=== PATIENT | female | born 1935 | race Caucasian/White ===

== ENCOUNTER 2016-10-13 11:47 | Outpatient (CLI) ==
[2016-10-13 13:46] LABS: BASOPHILS % (AUTO) 0.5 % (0.0-3.0); EOSINOPHILS % (AUTO) 0.5 % (0.0-7.0); HEMATOCRIT 36.8 % (37.0-47.0); IMMATURE GRANULOCYTE % (AUTO) 3.8 % (0.0-5.0); LYMPHOCYTES # (AUTO) 1.7 K/uL (0.60-3.4); LYMPHOCYTES % (AUTO) 27.3 (10.0-50.0); MEAN CORPUSCULAR HGB CONC 32.6 (31.8-35.4); MEAN CORPUSCULAR VOLUME 88.9 fl (81.0-99.0); MONOCYTES # (AUTO) 1.4 K/uL (0.4-2.0); MONOCYTES % (AUTO) 22.4 (0-10); NEUTROPHILS # (AUTO) 2.9 K/ul (2.0-6.9); NEUTROPHILS % (AUTO) 45.5; PLATELET COUNT 120 10^3/uL (140-440); RED BLOOD COUNT 4.14 10^6/ul (4.20-5.40); WHITE BLOOD COUNT 6.26 K/ul (4.6-10.2)
[2016-10-13 13:57] LABS: BILIRUBIN,URINE Negative (NEGATIVE); KETONES,URINE Negative (NEGATIVE); NITRITE,URINE Negative (NEGATIVE); PH,URINE 8.5 (5-9); PROTEIN,URINE Negative (NEGATIVE); URINE, BLOOD Trace-intact (NEGATIVE)
[2016-10-13 13:59] LABS: ADD URINE MICROSCOPIC NO; LEUKOCYTE ESTERASE ,URINE 1+ (NEGATIVE)
[2016-10-13 14:17] LABS: ALBUMIN 3.8 g/dL (3.4-5.0); ALBUMIN/GLOBULIN RATIO 1.06; ANION GAP 12.9; BILIRUBIN,TOTAL 0.72 mg/dL (0.00-1.20); BUN/CREATININE RATIO 28.35; CALCIUM 9.5 mg/dL (8.2-10.2); CHOL/HDL RATIO 3.2 (4.5-5.5); CREATININE 0.67 mg/dL (0.60-1.30); POTASSIUM 3.9 mmol/L (3.5-5.10); TOTAL PROTEIN 7.4 g/dL (5.8-8.1)
== END 2016-10-13 11:48 | disposition home or self-care (01) ==
LOC: LAB 11:47
PROVIDERS: ATTEND General Practice
DX: E11.9 Type 2 diabetes mellitus without complications (principal); E03.9 Hypothyroidism, unspecified; I48.91 Unspecified atrial fibrillation; I10 Essential (primary) hypertension; Z79.899 Other long term (current) drug therapy
CPT/HCPCS: 36415; 80053; 80061; 81001; 83036; 85025; 87086

== ENCOUNTER 2017-02-24 13:54 | Outpatient (CLI) ==
[2017-02-24 16:32] LABS: BASOPHILS % (AUTO) 0.1 % (0.0-3.0); EOSINOPHILS % (AUTO) 0.6 % (0.0-7.0); HEMATOCRIT 39.7 % (37.0-47.0); HEMOGLOBIN 12.8 g/dl (12.0-16.0); IMMATURE GRANULOCYTE % (AUTO) 2.5 % (0.0-5.0); LYMPHOCYTES # (AUTO) 1.6 K/uL (0.60-3.4); LYMPHOCYTES % (AUTO) 23.3 (10.0-50.0); MEAN CORPUSCULAR HGB CONC 32.2 (31.8-35.4); MEAN CORPUSCULAR VOLUME 89.8 fl (81.0-99.0); MONOCYTES # (AUTO) 1.4 K/uL (0.4-2.0); MONOCYTES % (AUTO) 20.7 (0-10); NEUTROPHILS # (AUTO) 3.6 K/ul (2.0-6.9); NEUTROPHILS % (AUTO) 52.8; PLATELET COUNT 123 10^3/uL (140-440); RED BLOOD COUNT 4.42 10^6/ul (4.20-5.40); WHITE BLOOD COUNT 6.82 K/ul (4.6-10.2)
[2017-02-24 16:38] LABS: BILIRUBIN,URINE Negative (NEGATIVE); KETONES,URINE Negative (NEGATIVE); LEUKOCYTE ESTERASE ,URINE Negative (NEGATIVE); NITRITE,URINE Negative (NEGATIVE); PROTEIN,URINE Negative (NEGATIVE); URINE, BLOOD Negative (NEGATIVE)
[2017-02-24 16:39] LABS: ADD URINE MICROSCOPIC NO
[2017-02-24 16:47] LABS: ALBUMIN 4.1 g/dL (3.4-5.0); ALBUMIN/GLOBULIN RATIO 1.17; BILIRUBIN,TOTAL 0.7 mg/dL (0.00-1.20); BUN/CREATININE RATIO 27.53; CHOL/HDL RATIO 3.3 (4.5-5.5); CREATININE 0.69 mg/dL (0.60-1.30); TOTAL PROTEIN 7.6 g/dL (5.8-8.1)
== END 2017-02-24 13:55 | disposition home or self-care (01) ==
LOC: LAB 13:54
PROVIDERS: ATTEND General Practice
DX: E03.9 Hypothyroidism, unspecified (principal); I10 Essential (primary) hypertension; I48.91 Unspecified atrial fibrillation; E11.9 Type 2 diabetes mellitus without complications; K58.9 Irritable bowel syndrome, unspecified; Z79.899 Other long term (current) drug therapy
CPT/HCPCS: 36415; 80053; 80061; 81001; 83036; 85025

== ENCOUNTER 2017-04-15 12:46 | Outpatient (CLI) ==
[2017-04-15 12:54] LABS: HEMATOCRIT 37.4 % (37.0-47.0); HEMOGLOBIN 12.4 g/dl (12.0-16.0); MEAN CORPUSCULAR HEMOGLOBIN 28.6 pg (27.0-31.0); MEAN CORPUSCULAR HGB CONC 33.2 (31.8-35.4); MEAN CORPUSCULAR VOLUME 86.4 fl (81.0-99.0); PLATELET COUNT 117 10^3/uL (140-440); RED BLOOD COUNT 4.33 10^6/ul (4.20-5.40); WHITE BLOOD COUNT 7.03 K/ul (4.6-10.2)
[2017-04-15 12:58] LABS: ADD URINE MICROSCOPIC YES; BILIRUBIN,URINE Negative (NEGATIVE); KETONES,URINE Trace (NEGATIVE); LEUKOCYTE ESTERASE ,URINE Negative (NEGATIVE); NITRITE,URINE Negative (NEGATIVE); PH,URINE 5.5 (5-9); PROTEIN,URINE 1+ (NEGATIVE); URINE, BLOOD Negative (NEGATIVE)
[2017-04-15 13:05] LABS: BACTERIA,URINE TRACE (NOT PRESENT)
[2017-04-15 13:19] LABS: ANISOCYTOSIS NOT PRESENT (NOT PRESENT)
[2017-04-15 13:29] LABS: ALBUMIN 3.5 g/dL (3.4-5.0); ALBUMIN/GLOBULIN RATIO 0.95; ANION GAP 14.2; BILIRUBIN,TOTAL 0.4 mg/dL (0.00-1.20); BUN/CREATININE RATIO 27.53; CALCIUM 9.5 mg/dL (8.2-10.2); CHOL/HDL RATIO 3.7 (4.5-5.5); CREATININE 0.69 mg/dL (0.60-1.30); POTASSIUM 4.2 mmol/L (3.5-5.10); TOTAL PROTEIN 7.2 g/dL (5.8-8.1)
== END 2017-04-15 12:47 | disposition home or self-care (01) ==
LOC: LAB 12:46
PROVIDERS: ATTEND General Practice
DX: E11.9 Type 2 diabetes mellitus without complications (principal); I10 Essential (primary) hypertension; E03.9 Hypothyroidism, unspecified; R06.02 Shortness of breath; F32.9 Major depressive disorder, single episode, unspecified; I48.91 Unspecified atrial fibrillation; R19.8 Other specified symptoms and signs involving the digestive system and abdomen; Z79.899 Other long term (current) drug therapy
CPT/HCPCS: 36415; 80053; 80061; 81001; 83036; 83880; 84443; 85007; 85025

== ENCOUNTER 2017-05-11 06:48 | Outpatient (CLI) ==
--- NOTE | 2017-05-12 12:44 | ECHO2D ---
Date of Exam: 05/11/17 Ordering Physician: ANITRA CAMPUZANO Room #: OP Reason for Echo: ATRIAL FIBRILLATION/ SURGICAL CLEARANCE M-Mode Normal Adult Results LV Dimensions Normal Adult Results AoV Opening excursions >1.6 >1.6 LVEDD-base- 3.5-5.8 4.9 Ao root dimensions 2.0-3.7 3.5 LVESD-base- 3.1-4.6 L. Atrium dimensions 1.9-3.8 6.1 Post. Wall thickness 0.8-1.1 1.5 IV septum (thickness) 0.7-1.2 1.5 Post. Wall excursion 0.72-1.3 NORMAL Septal motion NORMAL Systolic motion R. Ventricular cavity 1.5-2.0 NORMAL LVEF 60% 60% Paradoxical septal wall motion NORMAL 2-D : ENLARGED LEFT ATRIAL CAVITY, NORMAL LEFT VENTRICLE CONTRACTILITY-- CALCIFIC AORTIC VALVE--NO EFFUSION, NO THROMBUS M-MODE: MV: NORMAL AV: CALCIFIC VALVES--NO STENOSIS TV: NORMAL PV: NORMAL CHAMBER SIZE: ENLARGED LEFT ATRIAL CAVITY WALL MOTION: NORMAL PERICARDIUM: NORMAL INTERPRETATION: 1. LEFT VENTRICULAR HYPERTROPHY (MODERATE) WITH MARKEDLY ENLARGED LEFT ATRIAL CAVITY 2. NORMAL LEFT VENTRICULAR CONTRACTILITY 3. CALCIFIC AORTIC VALVES--NO STENOSIS 4. NORMAL LEFT VENTRICLE SIZE MTDD
== END 2017-05-11 06:49 | disposition home or self-care (01) ==
LOC: CAR 06:48
PROVIDERS: ATTEND Internal Medicine
DX: Z01.810 Encounter for preprocedural cardiovascular examination (principal); I48.91 Unspecified atrial fibrillation
CPT/HCPCS: 93005; 93010

== ENCOUNTER 2017-05-12 06:39 | Outpatient (CLI) | payer OTHER ==
[2017-05-12] MEDS ORDERED: ATROPINE SULFATE PFS ONE (07:06)
[2017-05-12] MEDS ORDERED: DOBUTAMINE 250 ML IV ONE (07:06)
--- NOTE | 2017-05-13 10:34 | DOBSTECHO ---
Ordering Physician: ANITRA CAMPUZANO Date of Test: 05/12/17 Reason for Examination: SURGICAL CLEARANCE, ATRIAL FIBRILLATION Height: 64" Weight: 160 LBS Target Heart Rate: 119/140 ST Segment Stage Time HR BPM BP mmhg Rhythm +/- Up Down Comments/Symptoms Control Sitting 56 130/62 SR X NONE Dobutamine 250mg/D5W 5cmg/KG/mn 10cmg/KG/mn 3" 70 122/68 SR X NONE 15cmg/KG/mn 2" 80 SR X NONE 20cmg/KG/mn 2" 86 118/60 SR X NONE 25cmg/KG/mn 2" 96 SR X NONE 30cmg/KG/mn 2" 102 130/58 SR X NONE 35cmg/KG/mn :36 104 SR X NONE 40cmg/KG/mn Time: 6" HR B/P Time: 9" HR B/P Time: HR B/P Recovery 76 120/68 Recovery 72 Recovery Total Time: 11:36 Maximum Heart Rate Reached: 104 Interpretation: 97% OXYGEN SATURATION AT REST 1. NO EVIDENCE OF ISCHEMIA BY ST-T WAVE FROM HEART RATE 56 BPM TO 104 BPM WITH DOBUTAMINE INFUSION 2. NORMAL LEFT VENTRICULAR CONTRACTILITY RESTING AND WITH DOBUTAMINE INFUSION 3. NO CHEST PAIN OR CHEST DISCOMFORT MTDD
--- NOTE | 2017-05-13 10:43 | ECHOSTRESS ---
Date of Exam: 05/12/17 Ordering Physician: ANITRA CAMPUZANO Reason for Echo: SURGICAL CLEARANCE, ATRIAL FIBRILLATION, DOBUTAMINE STRESS--NO ISCHEMIA M-Mode Normal Adult Results LV Dimensions Normal Adult Results AoV Opening excursions >1.6 LVEDD-base- 3.5-5.8 Ao root dimensions 2.0-3.7 LVESD-base- 3.1-4.6 L. Atrium dimensions 1.9-3.8 Post. Wall thickness 0.8-1.1 IV septum (thickness) 0.7-1.2 Post. Wall excursion 0.72-1.3 Septal motion Systolic motion R. Ventricular cavity 1.5-2.0 LVEF 60% Paradoxical septal wall motion 2-D: NORMAL LEFT VENTRICULAR CONTRACTILITY--RESTING AND WITH DOBUTAMINE INFUSION M-MODE: MV: AV: TV: PV: CHAMBER SIZE: WALL MOTION: NORMAL LEFT VENTRICULAR CONTRACTILITY--RESTING AND WITH DOBUTAMINE INFUSION PERICARDIUM: INTERPRETATION: 1. NORMAL LEFT VENTRICULAR CONTRACTILITY--RESTING AND WITH DOBUTAMINE INFUSION MTDD
== END 2017-05-12 06:40 | disposition home or self-care (01) ==
LOC: CAR 06:39
PROVIDERS: ATTEND Internal Medicine
DX: Z01.810 Encounter for preprocedural cardiovascular examination (principal); I48.91 Unspecified atrial fibrillation

== ENCOUNTER 2017-07-27 08:08 | Outpatient (CLI) ==
[2017-07-27 08:40] LABS: BASOPHILS % (AUTO) 0.4 % (0.0-3.0); EOSINOPHILS % (AUTO) 0.2 % (0.0-7.0); HEMATOCRIT 35.8 % (37.0-47.0); HEMOGLOBIN 11.6 g/dl (12.0-16.0); IMMATURE GRANULOCYTE % (AUTO) 2.8 % (0.0-5.0); LYMPHOCYTES # (AUTO) 1.3 K/uL (0.60-3.4); LYMPHOCYTES % (AUTO) 15.8 (10.0-50.0); MEAN CORPUSCULAR HEMOGLOBIN 27.6 pg (27.0-31.0); MEAN CORPUSCULAR HGB CONC 32.4 (31.8-35.4); MEAN CORPUSCULAR VOLUME 85.2 fl (81.0-99.0); MONOCYTES # (AUTO) 2.5 K/uL (0.4-2.0); MONOCYTES % (AUTO) 30.1 (0-10); NEUTROPHILS # (AUTO) 4.2 K/ul (2.0-6.9); NEUTROPHILS % (AUTO) 50.7; PLATELET COUNT 102 10^3/uL (140-440); WHITE BLOOD COUNT 8.24 K/ul (4.6-10.2)
[2017-07-27 08:42] LABS: ADD URINE MICROSCOPIC YES; BILIRUBIN,URINE Negative (NEGATIVE); KETONES,URINE Negative (NEGATIVE); LEUKOCYTE ESTERASE ,URINE Trace (NEGATIVE); NITRITE,URINE Negative (NEGATIVE); PROTEIN,URINE 1+ (NEGATIVE); URINE, BLOOD 1+ (NEGATIVE)
[2017-07-27 08:57] LABS: ALBUMIN 3.5 g/dL (3.4-5.0); ALBUMIN/GLOBULIN RATIO 0.85; BILIRUBIN,TOTAL 0.6 mg/dL (0.00-1.20); BUN/CREATININE RATIO 17.56; CALCIUM 9.3 mg/dL (8.2-10.2); CHOL/HDL RATIO 3.8 (4.5-5.5); CREATININE 0.74 mg/dL (0.60-1.30); TOTAL PROTEIN 7.6 g/dL (5.8-8.1)
[2017-07-27 09:33] LABS: BACTERIA,URINE 3+ (NOT PRESENT)
--- NOTE | 2017-07-28 08:56 | MAMMO ---
EXAM: Bilateral digital screening mammogram (2-D and 3-D) History: Screening Comparison: Bilateral mammogram 06/11/2016 Findings: MLO and CC views of bilateral breasts demonstrate scattered fibroglandular breast parenchym a. CAD was reviewed by the radiologist. Tomosynthesis was performed. Stable benign bilateral breas t calcifications. Stable benign left breast nodules. There are no developing masses, no suspicious microcalcifications and no architectural distortions Impression: Benign stable mammogram. Recommend followup routine screening mammography in 1 year. BIRADS 2
== END 2017-07-27 08:09 | disposition home or self-care (01) ==
LOC: RAD 08:08
PROVIDERS: ATTEND General Practice
DX: Z12.31 Encounter for screening mammogram for malignant neoplasm of breast (principal); I10 Essential (primary) hypertension; E11.9 Type 2 diabetes mellitus without complications; Z79.899 Other long term (current) drug therapy
CPT/HCPCS: 36415; 77067; 80053; 80061; 81001; 83036; 85025

== ENCOUNTER 2017-11-22 10:19 | Outpatient (CLI) | END 2017-11-22 10:20 | disposition home or self-care (01) | LOC: FCC-LAB 10:19 | PROVIDERS: ATTEND General Practice | DX: E03.9 Hypothyroidism, unspecified (principal); E11.9 Type 2 diabetes mellitus without complications; I10 Essential (primary) hypertension; I48.91 Unspecified atrial fibrillation; K58.9 Irritable bowel syndrome, unspecified; Z79.899 Other long term (current) drug therapy | CPT/HCPCS: 36415; 80053; 80061; 81001; 83036; 84443; 85025; 87086 ==

== ENCOUNTER 2018-01-11 11:54 | Outpatient (CLI) | payer OTHER | END 2018-01-11 11:55 | disposition home or self-care (01) | LOC: FCC-LAB 11:54 | PROVIDERS: ATTEND General Practice | DX: E11.9 Type 2 diabetes mellitus without complications (principal); E03.9 Hypothyroidism, unspecified; I48.91 Unspecified atrial fibrillation; I10 Essential (primary) hypertension; K58.9 Irritable bowel syndrome, unspecified; R60.0 Localized edema; D69.6 Thrombocytopenia, unspecified; Z79.899 Other long term (current) drug therapy | CPT/HCPCS: 36415; 80053; 80061; 81001; 83036; 85025; 87086 ==

== ENCOUNTER 2018-02-14 08:38 | Outpatient (CLI) | END 2018-02-14 08:39 | disposition home or self-care (01) | LOC: CAR 08:38 | PROVIDERS: ATTEND General Practice | DX: I48.91 Unspecified atrial fibrillation (principal) | CPT/HCPCS: 93005; 93010 ==

== ENCOUNTER 2018-02-15 07:06 | Day surgery (SDC) ==
[2018-02-15] MEDS ORDERED: LIDOCAINE 1% 20 ML MDV ID ONE (07:40)
[2018-02-15] MEDS ORDERED: LIDOCAINE 1% 20 ML MDV ID STA (07:47)
[2018-02-15] MEDS ORDERED: VERSED ONE (09:04)
[2018-02-15] MEDS ORDERED: DIPRIVAN 20 ML VIAL IVP ONE (09:04)
[2018-02-15] MEDS ORDERED: LIDOCAINE HCL 2% LUER-JET ONE (09:04)
[2018-02-15 11:29] VITALS: BP 143/84; TEMP 97.7
--- NOTE | 2018-02-16 08:50 | OP ---
INDICATIONS FOR PROCEDURE: 82-year-old female presents for endoscopy and colonoscopy. She was found to have an unexplained iron deficiency anemia. MEDICATIONS: SEE ANESTHESIA NOTES. PROCEDURE: 1. ENDOSCOPY, NERI BIOPSY. 2. COLONOSCOPY. REPORT: The risks, benefits, alternatives and limitations were discussed in detail with the patient. Informed consent was obtained. After adequate sedation was achieved, the video endoscope was introduced in the posterior pharynx and esophagus under direct vision and easily advanced down to the second portion of the duodenum. I then slowly withdrew. The duodenal mucosa appeared unremarkable as did the duodenal bulb. In the antrum there was one small 3 to 4 mm erosion. The antrum and body were relatively unremarkable otherwise. The scope was retroflexed to look at the cardia and fundus which was unremarkable. The scope was anteflexed. Two biopsies from the antral wall and from the body obtained for H. Pylori testing. I withdrew the scope back through the esophagus which was unremarkable. The patient tolerated this procedure well with stable vital signs and pulse oximetry throughout. The patient's bed was turned. A digital rectal exam revealed good tone, no masses. The colonoscope was introduced into the rectum, was advanced under direct visual guidance to the cecum. The cecum was identified by the appendiceal orifice and IC valve. I then slowly withdrew the scope in a circumferential manner examining the mucosa quite carefully. I looked on the proximal and distal side of folds and flexures as best as possible. I was able to retroflex the scope in the right colon and left colon to increase visualization. The colonic mucosa was unremarkable except for multiple small mouth diverticula scattered throughout the left colon. No other abnormalities were noted including on retroflex view of the anal canal. The prep was good. The withdrawal time was 6 minutes and 48 seconds. The patient tolerated the procedure well with stable vital signs and pulse oximetry throughout. IMPRESSION: 1. One (1) tiny erosion in the gastric antrum, question clinical significance. 2. Colonic diverticulosis. RECOMMENDATIONS: 1. Continue on current medications. 2. Await H. Pylori results. 3. High fiber diet. 4. Future colonoscopies as needed only. 5. Office visit as needed. CC: DR. CAROLINA WARD
== END 2018-02-15 10:30 | disposition home or self-care (01) ==
LOC: SURG 07:06
PROVIDERS: ATTEND Internal Medicine Gastroenterology
DX: D50.9 Iron deficiency anemia, unspecified (principal); K57.30 Diverticulosis of large intestine without perforation or abscess without bleeding; K25.9 Gastric ulcer, unspecified as acute or chronic, without hemorrhage or perforation
CPT/HCPCS: 87339

== ENCOUNTER 2018-03-04 18:23 | Outpatient (CLI) | END 2018-03-04 18:24 | disposition home or self-care (01) | LOC: FCC-LAB 18:23 | PROVIDERS: ATTEND General Practice | DX: E03.9 Hypothyroidism, unspecified (principal); I10 Essential (primary) hypertension; I48.91 Unspecified atrial fibrillation; Z79.899 Other long term (current) drug therapy | CPT/HCPCS: 36415; 80053; 80061; 81001; 84443; 85025 ==

== ENCOUNTER 2018-03-14 11:20 | Outpatient (CLI) | END 2018-03-14 11:21 | disposition home or self-care (01) | LOC: CAR 11:20 | PROVIDERS: ATTEND General Practice | DX: I48.91 Unspecified atrial fibrillation (principal) | CPT/HCPCS: 93005; 93010 ==

== ENCOUNTER 2018-07-07 08:19 | Outpatient (CLI) ==
[2018-05-20 16:14] VITALS: BMI 25.2
--- NOTE | 2018-07-08 08:54 | MAMMO ---
EXAM: Bilateral digital screening mammogram (2-D and 3-D) History: Screening Comparison: Bilateral mammogram 07/27/2017 Findings: MLO and CC views of bilateral breasts demonstrate scattered fibroglandular breast parenchy ma. CAD was reviewed by the radiologist. Tomosynthesis was performed. Stable benign bilateral brandan st calcifications and stable benign nodules within the left breast. There are no developing masses, no suspicious microcalcifications and no architectural distortions Impression: Benign stable mammogram. Recommend followup routine screening mammography in 1 year. BIRADS 2
== END 2018-07-07 08:20 | disposition home or self-care (01) ==
LOC: RAD 08:19
PROVIDERS: ATTEND General Practice
DX: Z12.31 Encounter for screening mammogram for malignant neoplasm of breast (principal); Z79.899 Other long term (current) drug therapy; I73.9 Peripheral vascular disease, unspecified; E03.9 Hypothyroidism, unspecified; I10 Essential (primary) hypertension
CPT/HCPCS: 36415; 80053; 80061; 81001; 85025

== ENCOUNTER 2018-10-12 14:17 | Outpatient (CLI) ==
[2018-05-20 16:14] VITALS: BMI 25.2
--- NOTE | 2018-10-12 15:11 | DI ---
EXAM: RIGHT FOREARM, 2 VIEWS HISTORY: Right forearm pain FINDINGS: Bones appear demineralized. There is arthropathy of the wrist, severe at the first carpal -metacarpal joint consistent with osteoarthritis. No fracture or dislocation is seen. Apparent wrap ping left in place over the proximal forearm. IMPRESSION: 1. No fracture or dislocation. Osteoarthritis.
--- NOTE | 2018-10-12 15:51 | US ---
EXAM: Right upper extremity venous Doppler History: Right upper extremity pain and swelling. Technique: Multiple sonographic images through the right upper extremity were obtained. Color duple x Doppler was used to interrogate vascular flow. Findings: The right internal jugular, subclavian, axillary, brachial, cephalic, basilic, radial and ulnar veins demonstrate spontaneous flow with normal compression and normal augmentation. Impression: No sonographic evidence for deep venous thrombosis
== END 2018-10-12 14:18 | disposition home or self-care (01) ==
LOC: RAD 14:17
PROVIDERS: ATTEND General Practice
DX: M79.631 Pain in right forearm (principal); M79.89 Other specified soft tissue disorders; I10 Essential (primary) hypertension
CPT/HCPCS: 36415; 85651; 86140

== ENCOUNTER 2018-11-14 12:21 | Outpatient (CLI) | payer OTHER ==
[2018-05-20 16:14] VITALS: BMI 25.2
== END 2018-11-14 12:22 | disposition home or self-care (01) ==
LOC: LAB 12:21
PROVIDERS: ATTEND Internal Medicine Hematology & Oncology
DX: D69.6 Thrombocytopenia, unspecified (principal)
CPT/HCPCS: 36415; 80053; 82607; 82728; 83540; 83550; 85025

== ENCOUNTER 2019-01-10 09:00 | Outpatient (CLI) | payer OTHER ==
[2018-05-20 16:14] VITALS: BMI 25.2
== END 2019-01-10 09:01 | disposition home or self-care (01) ==
LOC: RHC-LAB 09:00
PROVIDERS: ATTEND General Practice
DX: E03.9 Hypothyroidism, unspecified (principal); I48.91 Unspecified atrial fibrillation; F41.9 Anxiety disorder, unspecified; I10 Essential (primary) hypertension; E11.9 Type 2 diabetes mellitus without complications; Z79.899 Other long term (current) drug therapy
CPT/HCPCS: 36415; 80053; 80061; 83036; 84443; 85025

== ENCOUNTER 2019-01-10 09:01 | Outpatient (POV) ==
[2018-05-20 16:14] VITALS: BMI 25.2
== END 2019-01-10 17:00 ==
LOC: OUTPT 09:01
PROVIDERS: ATTEND Otolaryngology
DX: R42 Dizziness and giddiness (principal)
CPT/HCPCS: 92557

== ENCOUNTER 2019-02-06 12:38 | Outpatient (CLI) ==
[2018-05-20 16:14] VITALS: BMI 25.2
== END 2019-02-06 12:39 | disposition home or self-care (01) ==
LOC: RHC-LAB 12:38
PROVIDERS: ATTEND General Practice
DX: Z79.899 Other long term (current) drug therapy (principal)
CPT/HCPCS: 81001

== ENCOUNTER 2019-04-24 10:15 | Outpatient (CLI) ==
[2018-05-20 16:14] VITALS: BMI 25.2
== END 2019-04-24 10:16 | disposition home or self-care (01) ==
LOC: LAB 10:15
PROVIDERS: ATTEND General Practice
DX: E03.9 Hypothyroidism, unspecified (principal); I48.91 Unspecified atrial fibrillation; I10 Essential (primary) hypertension; F32.9 Major depressive disorder, single episode, unspecified; F41.9 Anxiety disorder, unspecified; Z79.899 Other long term (current) drug therapy
CPT/HCPCS: 36415; 80053; 80061; 81001; 84443; 85025; 87086

== ENCOUNTER 2019-05-04 16:00 | Outpatient (CLI) ==
[2018-05-20 16:14] VITALS: BMI 25.2
--- NOTE | 2019-05-05 08:25 | DI ---
EXAM: Chest two views HISTORY: Cough COMPARISON: 08/15/2018 TECHNIQUE: Two views of the chest were performed FINDINGS: The lungs are clear. There is no pleural effusion or pneumothorax. Stable cardiomegaly a nd mediastinal contour. Aortic atherosclerotic calcifications. Aortic atherosclerotic calcification s. There are no acute abnormalities of the bones. IMPRESSION: Similar cardiomegaly. No acute cardiopulmonary findings.
== END 2019-05-04 16:01 | disposition home or self-care (01) ==
LOC: RHC-LAB 16:00
PROVIDERS: ATTEND General Practice
DX: R05 Cough (principal); R06.02 Shortness of breath
CPT/HCPCS: 36415; 83880

== ENCOUNTER 2019-09-13 16:15 | Observation (INO) ==
[2019-09-13 17:15] VITALS: BMI 25.2
[2019-09-13 18:23] LABS: HEMATOCRIT 33.1 % (37.0-47.0)
[2019-09-13] MEDS: GLUCOPHAGE PO SCH (21:07)
[2019-09-13] MEDS: ATIVAN PO SCH (21:07)
[2019-09-13] MEDS: ELIQUIS PO SCH (21:07)
[2019-09-13] MEDS: CARDIZEM PO SCH (21:09)
[2019-09-14 05:27] LABS: HEMATOCRIT 30.5 % (37.0-47.0)
[2019-09-14] MEDS ORDERED: PRILOSEC PO SCH (06:30)
[2019-09-14] MEDS ORDERED: SYNTHROID PO SCH ×2 (06:30)
[2019-09-14] MEDS ORDERED: ZOCOR PO SCH (09:00)
[2019-09-14] MEDS ORDERED: ASPIRIN EC PO SCH ×2 (09:00)
[2019-09-14] MEDS ORDERED: CELEXA PO SCH (09:00)
[2019-09-14] MEDS ORDERED: GLUCOPHAGE PO SCH (09:00)
[2019-09-14] MEDS: CARDIZEM PO SCH (09:27)
[2019-09-14] MEDS: ATIVAN PO SCH ×2 (09:27→21:05)
[2019-09-14] MEDS: ELIQUIS PO SCH (09:28)
[2019-09-14] MEDS: GLUCOPHAGE PO SCH ×2 (09:28→16:49)
--- NOTE | 2019-09-14 11:26 | US ---
EXAM: ULTRASOUND LOWER EXTREMITY VENOUS DOPPLER EXAM HISTORY: Leg swelling, pain. FINDINGS: Right lower extremity venous Doppler exam. Real time marin-scale, Doppler spectral analysi s and color-flow Doppler imaging performed. The veins targeted for evaluation include the common fem oral, greater saphenous, profundus, femoral, popliteal, peroneal, anterior tibial and posterior tibia l. The right anterior tibial veins were not seen. The evaluated veins demonstrated normal spontaneous f low and compression without evidence of thrombosis. IMPRESSION: 1. Right anterior tibial veins were not seen. The evaluated veins demonstrated no evidence of DVT.
[2019-09-14] MEDS ORDERED: PREVALITE PO SCH (12:00)
[2019-09-14] MEDS: CHOLESTYRAMINE 4 GM PO SCH (14:03)
[2019-09-14] MEDS: [UNRECOGNIZED DRUG - OTHER] PO SCH (14:03)
[2019-09-14] MEDS: MAXIPIME 2 GM/50 ML D5W 2 GM/50 ML BAG IV SCH ×2 (14:51→21:09)
--- NOTE | 2019-09-14 15:58 | RS.PTINEVL ---
Subjective - Patient information Date of Evaluation: 09/14/19 Date of Arrival on Unit: 09/13/19 Admitted From:: Home Diagnosis: RLE cellulitis Usual Living Arrangement: jessica Home Environment: House, Level/No stairs Medical History: Hypertension, Arthritis Medical History Comments:: irregular HR, R bundle branch block, GERD, depression, anxiety, LATEX ALLERGY?: No Surgical History: Hysterectomy Medications: see chart Subjective Information/ Patient Comments:: pt states that she would like to get OOB and sit in recliner. - Level of function Abilities prior to this admission: pt amb with cane at home, sons help her as needed. Current Level of Function: Partially Dependent Current Equipment Used at Home: single point, glucometer, blood pressure cuff automatic, walker Pain Assessement - Location RLE Description: Sharp Pain Behavior: Facial Grimacing Interventions - Objective Patient Orientation: Person, Place Current Interventions: Telemetry Observation: pt with pitting edema, erythema Range of Motion - ROM Right Upper Extremity AROM: WFL's Left Upper Extremity AROM: WFL's Right Lower Extremity AROM: WFL's Left Lower Extremity AROM: WFL's Muscle Strength - Muscle Strength Right Upper Extremity Strength: Mild Weakness (grossly 4-/5) Left Upper Extremity Strength: Mild Weakness (grossly 4-/5) Right Lower Extremity Strength: Mild Weakness (hip flex 3+/5, knee flex/ext 4- /5, ankle DF/PF 4-/5) Left Lower Extremity Strength: Mild Weakness (hip flex 4-/5, knee flex/ext 4/5, ankle DF/PF 4/5) Sensation - Sensation Right Upper Extremity Sensation: Intact/Normal Left Upper Extremity Sensation: Intact/Normal Right Lower Extremity Sensation: Impaired Left Lower Extremity Sensation: Intact/Normal Palpation Palpation Findings: Tenderness Comments:: RLE Balance - Sitting Balance and Reactions Static Sitting Balance: Fair Dynamic Sitting Balance: Fair - Standing Balance and Reactions Static Standing Balance: Poor Dynamic Standing Balance: Poor Standing Equilibrium Reactions: Delayed Left, Delayed Right Standing Protective Reactions: Delayed Left, Delayed Right Functional Mobility - Bed Mobility Rolling R/L: CGA Supine to Sit: CGA - Transfers Sit to Stand: CGA Stand to Sit: CGA - Safety Awareness Safety Awareness: Poor DIMA INDEX SCORE: n/a Ambulation - Ambulation Assistive Device Used: Straight Cane Orthotic/Prosthetic Device: No Distance: 5ft Assistance needed with Ambulation: CGA Gait Deviations: Forward posture, Short stride Ambulation Comments: pt requires cues for flexed posture and step length. Factors Affecting Ambulation: Decreased Balance, Pain, Weakness, Decreased Safety, Limited Endurance Treatment time - Time with patient Length of Evaluation: 22 Total treatment time: 26 Patient Education - Education Patient Education: Activity Modification, Education of Plan of Care Teaching Recipient: Patient Teaching Methods: Discussion Comments: discussion regarding POC Assessment - Assessment Problem List:: Decreased level of function, Requires training/education, Decreased safety/Risk of falls, Weakness Rehab Potential: Fair Further Therapy Indicated?: Yes Candidate for Swing Bed for Therapy Services?: would need to reassess at a later time Evaluation Complexity: HISTORY: Medium, EXAM OF BODY SYSTEMS: Medium, CLINICAL PRESENTATION: Medium, CLINICAL DECISION MAKING: Medium Patient's Goal(s): Go back home with her sons. Short Term Goals GOAL #1: pt demonstrate rolling and bridging independent Goal to be met by: 09/18/19 GOAL #2: Transfer sup to/from sit SBA Goal to be met by: 09/18/19 GOAL #3: Sit to/from stand SBA Goal to be met by: 09/18/19 GOAL #4: pt amb with AAD 50ft with CGA with improved posture Goal to be met by: 09/18/19 Care Home Goals GOAL #1: pt transfer sup to/from sit to/from stand SBA to independent Goal to be met by: 09/20/19 GOAL #2: pt amb with rwx 120ft with no LOB CGA to SBA Goal to be met by: 09/20/19 GOAL #3: pt demonstrate improved dyn stand balance to fair Goal to be met by: 09/20/19 Plan Plan of Care: Therapeutic EX, Therapeutic Activity Other:: gait training Frequency of Treatment: 1-2 X day, as tolerated Duration of Treatment: 5 days Anticipated Discharge Destination: Home Treatment Diagnosis (ICD 10 Codes): R 26.2 difficulty walking. R 26.81 balance impaired,. M 62.81 weakness Has the Physician been added for Co-signature?: Yes
[2019-09-14] MEDS ORDERED: ELIQUIS PO SCH (21:00)
[2019-09-14] MEDS ORDERED: CARDIZEM PO SCH (21:00)
[2019-09-14] MEDS: CARVEDILOL 3.125 MG PO SCH (21:07)
[2019-09-15] MEDS: MAXIPIME 2 GM/50 ML D5W 2 GM/50 ML BAG IV SCH ×2 (04:14→13:19)
[2019-09-15 05:09] LABS: HEMATOCRIT 29.2 % (37.0-47.0)
[2019-09-15] MEDS ORDERED: SYNTHROID PO SCH ×2 (06:30)
[2019-09-15] MEDS ORDERED: PRILOSEC PO SCH (06:30)
[2019-09-15] MEDS ORDERED: ASPIRIN EC PO SCH (08:00)
[2019-09-15] MEDS ORDERED: [UNRECOGNIZED DRUG - OTHER] PO SCH (09:00)
[2019-09-15] MEDS ORDERED: CELEXA PO SCH (09:00)
[2019-09-15] MEDS ORDERED: NON-FORMULARY MEDICATION PO SCH ×3 (09:00→21:00)
[2019-09-15] MEDS ORDERED: NON-FORMULARY MEDICATION (Potassium Chloride [Potassium Chloride] 10 MEQ) PO SCH (09:00)
[2019-09-15] MEDS ORDERED: TORSEMIDE 5 MG PO SCH (09:00)
[2019-09-15] MEDS ORDERED: ZOCOR PO SCH (09:00)
[2019-09-15] MEDS: ATIVAN PO SCH (09:14)
[2019-09-15] MEDS: GLUCOPHAGE PO SCH (09:15)
[2019-09-15] MEDS: [UNRECOGNIZED DRUG - OTHER] PO SCH (09:16)
[2019-09-15] MEDS: CARVEDILOL 3.125 MG PO SCH (09:16)
[2019-09-15] MEDS: CHOLESTYRAMINE 4 GM PO SCH (09:16)
--- NOTE | 2019-09-15 10:44 | PN ---
DATE OF SERVICE: 09/14/2019 SUBJECTIVE: The patient is alert and responsive. No dyspneic or tachypneic. The swelling in the right leg and the skin now showed some wrinkling. The patient again is instructed to be in bed with the foot elevated and also instructed the nurse to do that. The patient is given Cefepime 2mg every 8 hours intervenously since the foot is still warm and red. This might be cellulitis rather than just plan discoloration secondary to venous insufficiency. Doppler studies were done today and don't have any results. The renal panel is satisfactory for the medication. She has a chronic kidney disease stage 2. Allergies to sulfa. This patient will probably be sent home with compression hose if we are able to find one. Again this patient was advised to elevate her legs at home. She does go to the kitchen to eat and remains seated the whole day. I told her that after she goes to eat and go the bathroom for privileges that she should go back to bed with the foot elevated above her heart level. MTDJose A
--- NOTE | 2019-09-15 11:01 | PN ---
DATE OF SERVICE: 09/14/2019 SUBJECTIVE: The patient is alert and oriented and responsive and cheerful. The patient was seen earlier and also seen this evening about 5:40pm. I was accompanied by Sejal the nurse. The patient was in bed with her son in the recliner. The patient's head was way above the level of the feet. I again emphasized to her in the presence of the son and also the nurse the foot has to be elevated. There is now a reduction in the edema. The leg is still red and warm and tender to touch. Because of the persistent redness and tenderness I may decide to give an antibiotic. Cefepime 2 grams intervenously every 8 hours was selected. This patient had been on Eliquis 2.5mg twice a day because of atrial fibrillation. This patient had a previous Doppler studies of the right lower extremity which was completely normal. The Doppler study done today 09/14/2019 does not show the right anterior tibial veins which was seen previously done 09/07/2019. We discussed the studies with radiologist tomorrow. This patient is already on a direct oral anticoagulant, Eliquis. The swelling is less. The patient did have a trauma to the lower posterior leg near the ankle probably produced a hematoma. That area is firm. We will see how the leg does tomorrow. The patient desired to go home and I do think that it is probably possible for her to go home tomorrow after I have discussed the venous studies done. I did tell the patient in the presence again of her son and the nurse, Sejal that it is very important for her and necessary to elevate the leg above her heart level. I had demonstrated that to her in the room. Told her that the only time she should be sitting is when she is eating or she is going to the bathroom for necessities. Otherwise she should be in bed with the legs elevated and moving her legs accordingly. SYLVIA
[2019-09-15] MEDS ORDERED: TENIVAC IM ONE (13:13)
--- NOTE | 2019-09-15 13:44 | HP ---
DATE OF SERVICE: 09/13/19 CHIEF COMPLAINT: Right lower extremity pain and swelling. HISTORY OF PRESENT ILLNESS: Ms. Billings is a pleasant 83-year-old patient of Dr. Vallejo who initially presented to the office on September 07, 2019 with complaints of right leg swelling. She tells me that she stepped out of a tow truck. She missed the last step and she hit her right lower extremity on the metal part of the step. This happened on the Wednesday prior to seeing the patient on September 07, 2019. There were no open areas at the time of that visit but there was a large knot at the outer portion of the right lower extremity. She did complain of right lower extremity swelling. It was very edematous, very tender and warm to touch. The swelling extended upward to the right midway to the right fountain and into the right foot. She does have chronic lower extremity swelling but this is much more edematous than her normal swelling. She was not able to get a compression hose on that right lower extremity due to the swelling. At that office visit she was checked for a clot and she was also checked with an x-ray to rule out fracture due to that injury. The ultrasound did show soft tissue with a probable subcutaneous edema. The x-rays did not show any fractures. She was instructed to elevate the lower extremity above the level of the heart often. She was instructed to followup the following Wednesday. An appointment was made for her and she is instructed to go to the Emergency Department if any worsening of symptoms. Again, the swelling was significant 2 to 3+ edema. She did not want to be admitted that day. She deferred and wanted to see what would happen if she tried outpatient elevation and conservative treatment. Her vital signs were stable that day, blood pressure 142/57. She did return back to the office on September 13, 2019. At that office visit, the swelling was more significant. She had a lot more pain to the right lower extremity. Again venous ultrasound was negative. The right tib/fib x-ray was negative, showed no obvious fracture, no dislocation, probable subcutaneous edema. Decision was made to admit the patient with probable cellulitis of that right lower extremity due to injury of the right lower extremity and right leg swelling. PAST MEDICAL HISTORY: Anxiety Arthritis Cataract Depression Diabetes mellitus Diverticulosis Gastric reflux Hearing problems Hyperlipidemia Hypertension Hypothyroidism Irritable bowel syndrome Macular degeneration Palpitations Pancreatitis PAST SURGICAL HISTORY: Dental surgery Appendectomy Cholecystectomy Hysterectomy Total knee replacement in April of 2017 FAMILY HISTORY: Mother with diabetes, cardiac disease, hypertension. Father with cardiac disease, hypertension. Sister with cardiac disease and asthma. Brother . SOCIAL HISTORY: Denies any alcohol use, tobacco use or substance abuse. No illicit drug use. MEDICATIONS: (CURRENT HOME) Eliquis 2.5 mg twice a day Aspirin 81 mg daily Coreg 3.125 mg twice a day Cholestyramine 4 gm powder packet daily Citalopram 20 mg tablet daily Diltiazem 30 mg twice a day Levothyroxine 25 mcg daily Levothyroxine 100 mcg tablet daily Lorazepam 0.5 mg twice a day Metformin 500 mg twice a day Omeprazole 20 mg daily Provision macular health formula one capsule daily Simvastatin 20 mg daily Torsemide 5 mg daily ALLERGIES: SULFA REVIEW OF SYSTEMS: CONSTITUTIONAL: No reports of fever, chills, nightsweats or weight changes. HEENT: No reports of headache, nasal drainage or sore throat. CARDIOVASCULAR: No reports of chest pain or irregular rhythm. No orthopnea. She does complain of significant peripheral edema especially to the right lower extremity. RESPIRATORY: Lungs - No complaints of any shortness of breath. Denies any cough or congestion. No lung disease. GASTROINTESTINAL: No reports of abdominal pain, nausea, vomiting, diarrhea, constipation or blood in the stool. GENITOURINARY: No complaints of dysuria, hematuria, nocturia or urinary incontinence. MUSCULOSKELETAL: She does complain of right lower extremity pain that is significant and has been worsening status post injury. NEUROLOGIC: No reports of dizziness or neurological deficits at this time. Denies any syncopal episode or any falls. She does complain of injury after she missed a step out of the tow truck. She denies falling, she just missed the step. She denies any fatigue or any neurological deficit. PSYCHIATRIC: Denies any anxiety, depression or mood changes. ENDOCRINE: She does have a history of diabetes mellitus and thyroid disease. No reports of increased thirst, urination, heat or cold intolerance. INTEGUMENTARY: Right lower extremity is very edematous and erythematous. There is 2+ pitting edema to the right lower extremity. The lateral aspect does have a large knot. It is tender and warm to touch and again erythematous. Other than that no reports of any new lesions noted. PHYSICAL EXAMINATION: GENERAL: She is alert, oriented and is very pleasant. She is in no acute distress. VITAL SIGNS: Height 5'5", weight 153 lbs, BMI 25.4, BP 140/50, respirations 16, pulse 42, temperature 97.2, pulse ox 97 on room air. HEENT: Head normocephalic, atraumatic. Pupils equal/reactive to light. Conjunctivae clear. NECK: Supple. No lymphadenopathy, no carotid bruits. CARDIOVASCULAR: She does have an irregular rhythm, chronic atrial fibrillation. Peripheral pulses are not palpable. There is no JVD. S1, S2 regular rate and rhythm. LUNGS: Clear bilaterally, no adventitious breath sounds are heard. She is no acute distress.. ABDOMEN: Soft. Nontender. Bowel sounds are positive. NEUROLOGIC: Cranial nerves 2-12 grossly intact without. SKIN: Warm and dr with exception of the right lower extremity it is edematous and erythematous, warm to touch. There is a large knot to the lateral aspect of the right lower extremity. There is 2+ pitting edema to the right lower extremity and it again is very tender to touch. LABS AND DIAGNOSTIC TESTING: Again, ultrasound was negative for DVT. The x-ray did not show fracture, did show soft tissue swelling. : ASSESSMENT: 1. RIGHT LOWER EXTREMITY SWELLING AND ERYTHEMA, STATUS POST RIGHT LOWER EXTREMITY INJURY. 2. PROBABLE CELLULITIS OF THE RIGHT LOWER EXTREMITY. 3. DIABETES MELLITUS TYPE 2. 4. HYPERTENSION. 5. HYPERLIPIDEMIA. 6. HYPOTHYROIDISM. 7. GASTROESOPHAGEAL REFLUX DISEASE. 8. HISTORY OF ATRIAL FIBRILLATION ON CHRONIC ANTICOAGULATION. 9. IRRITABLE BOWEL SYNDROME. 10. ANXIETY. PLAN: 1. Check labs - will check CBC, CMP, NT-pro-BNP, A1c, procalcitonin and TSH. 2. Elevate bilateral lower extremity above the level of the heart. We have instructed the nursing staff to measure the circumference of the bilateral lower extremities initially at the same area and then daily at the same time and the same area and to gil that area. 3. Daily weights. 4. Blood cultures times one twin sites. 5. She has been ordered a regular diet. 6. These orders were given to the nursing staff. 7. Further orders and recommendations per Dr. Vallejo. TIME SPENT: GREATER THAN 65 MINUTES MTDD
[2019-09-15 14:30] VITALS: BP 113/51; TEMP 98.6
--- NOTE | 2019-09-21 09:50 | DS ---
DATE OF SERVICE: 09/15/2019 FINAL DIAGNOSES: 1. Right lower hematoma with swelling, edema, erythema and status post right lower extremity injury and DVT ruled out 2. Probable cellulitis of the right lower extremity 3. Diabetes mellitus type 2 4. Hypertension 5. Hyperlipidemia 6. Hypothyroidism 7. Gastroesophageal reflux disease 8. History of atrial fibrillation on chronic anticoagulation 9. Irritable bowel syndrome 10.Anxiety BRIEF HISTORY OF PRESENT ILLNESS/HOSPITAL COURSE: Mrs. Billings is a pleasant 83 year old patient of Dr. Vallejo who presented to the office initially on September 07 with complaints of right lower extremity swelling. She had stepped out of a tow truck and missed the last step and hit her right lower extremity on a metal part of the step. This happened on a Wednesday prior to seeing the patient on September 072019. There were no open areas but there was a large not hematoma at the outer portion of the right lower extremity. She did complain of right lower extremity swelling. It was very edematous and very tender and warm to touch. The swelling did extent upward to the right midway to the right fountain and to the right foot. She does have chronic lower extremity swelling but this is much more edematous and extensive then her normal swelling. She was having quite a bit of pain. She was not able to get her compression hose on because of the extensive swelling. She was checked for a blood clot at that office visit as well as an x-ray to rule out fracture. The ultrasound did show soft tissue swelling and probably subcutaneous edema. The x- ray did not show any fracture. She was instructed to elevate that lower extremity above the level of her heart as often as possible and she is instructed to followup the following Wednesday and an appointment was made for her. She was instructed to go to the emergency department if worsening symptoms. The swelling was significant most likely 2-3+ pitting edema. She did not want to be admitted on that day. She wanted to see what happened outpatient and she tried conservative treatment. Her vital signs were stable that day as well. She did return back to the office on September 13 and at that office visit the swelling was much more significant. She was agreeable to admission. She was in a lot of pain. Again the venous ultrasound was negative in the Tibia/Fibula x-ray was negative. Admission was made for this patient to help with the swelling and to treat for probable cellulitis. Labs were checked on the patient including a PRO BNP and an A1c. Procalcitonin. The patient's right lower extremity was elevated above the level of the heart and the nursing staff was instructed to measure the circumference of the bilateral lower extremity initially at the same area and then daily at the same time and the same area to gil the area. She was also instructed on daily weights. Blood cultures were ordered. She was ordered a regular diet. The edema did continue to improve. The patient was given Cefepime 2mg every 8 hours intervenously because the foot was warm and red. Again the swelling did continue to improve day by day. Per review of September 14, [address] Vallejo did emphasize to the patient that the foot had to elevated above the level of the heart. There was now a reduction in the edema. The leg was still red and warm and tender to touch. Again Cefepime was given intervenously. The patient continued on Eliquis for her atrial fibrillation. The Doppler study done on 09/14/2019 does not show the right anterior tibial veins which was seen previously done 09/07/2019. Dr. Vallejo did discuss the studies with the radiologist. Dr. Vallejo did discuss with the patient the only time that she would be sitting with her legs down is when she was eating or going to the bathroom and other necessities otherwise she would need to be in the bed with her legs elevated. PERTINENT LABS/DIAGNOSTIC TESTING: September 15, 2019 WBC was 3.06, hgb 9.6, hct 29.2, plt count 118. Chemistry panel was within normal limits. Her most recent NT PRO BNP was done on 09/13/2019 and it was 1,450. DISCHARGE MEDICATIONS: The patient would continue her regular home medications. She will sent home on: Cefdinir 300mg twice a day for one week if developed diarrhea she was instructed to call the office [facility] and to stop the medicine. PHYSICAL EXAMINATION: HEART: Irregular with a chronic atrial fibrillation LUNGS: Clear to auscultation EXTREMITIES: Again emphasis on elevating the right lower extremity above the level of the heart. Again there has been much improvement in the swelling to the right lower extremity with decreased warmth and decreased redness. VITAL SIGNS AT DISCHARGE: 09/15/2019: Temperature 98.6, blood pressure 113/51, pulse 66, respiratory rate 18, O2 saturation 96% on room air. DISCHARGE DIET: She consume a regular diet DISCHARGE ACTIVITY: As mentioned above. DISCHARGE INSTRUCTIONS: She will followup in one week to see Dr. Vallejo. Pertinent labs and diagnostic testing will be ordered at that appointment. TIME SPENT: GREATER THAN 30 MINUTES MTDD
== END 2019-09-15 15:15 | disposition home or self-care (01) ==
LOC: MEDSURG B 16:15 → INTOOBSV 16:15
PROVIDERS: ADMIT General Practice; ATTEND General Practice
DX: N18.2 Chronic kidney disease, stage 2 (mild); W22.8XXA Striking against or struck by other objects, initial encounter; M79.661 Pain in right lower leg; I48.91 Unspecified atrial fibrillation; S80.11XA Contusion of right lower leg, initial encounter; Z79.01 Long term (current) use of anticoagulants; E78.5 Hyperlipidemia, unspecified; K58.9 Irritable bowel syndrome, unspecified; R60.0 Localized edema; F41.9 Anxiety disorder, unspecified; E11.9 Type 2 diabetes mellitus without complications; K21.9 Gastro-esophageal reflux disease without esophagitis; I10 Essential (primary) hypertension; E03.9 Hypothyroidism, unspecified

== ENCOUNTER 2020-02-07 09:36 | Inpatient (IN) ==
[2020-02-07 14:05] VITALS: BMI 24.6
[2020-02-13 21:33] VITALS: BP 109/62; TEMP 99.3
== END 2020-02-14 04:00 | disposition expired | DRG 814 ==
LOC: ED 09:36 → MEDSURG B 12:13
PROVIDERS: ADMIT Internal Medicine; ATTEND Internal Medicine
DX: F41.8 Other specified anxiety disorders; I10 Essential (primary) hypertension; R07.81 Pleurodynia; D64.9 Anemia, unspecified; R06.02 Shortness of breath; Z51.81 Encounter for therapeutic drug level monitoring; Z79.01 Long term (current) use of anticoagulants; N17.9 Acute kidney failure, unspecified; D72.821 Monocytosis (symptomatic); I50.9 Heart failure, unspecified; Z91.14 Patient's other noncompliance with medication regimen; R53.1 Weakness; E11.9 Type 2 diabetes mellitus without complications; D69.6 Thrombocytopenia, unspecified; R42 Dizziness and giddiness; C92.00 Acute myeloblastic leukemia, not having achieved remission; Z87.19 Personal history of other diseases of the digestive system; B96.20 Unspecified Escherichia coli [E. coli] as the cause of diseases classified elsewhere; R00.2 Palpitations; E78.5 Hyperlipidemia, unspecified; I48.19 Other persistent atrial fibrillation; R62.7 Adult failure to thrive; R50.9 Fever, unspecified; N39.0 Urinary tract infection, site not specified; I95.9 Hypotension, unspecified; Z79.899 Other long term (current) drug therapy; R51 Headache; E87.6 Hypokalemia; E87.5 Hyperkalemia; R60.0 Localized edema; J96.00 Acute respiratory failure, unspecified whether with hypoxia or hypercapnia; E03.9 Hypothyroidism, unspecified; R26.89 Other abnormalities of gait and mobility; R00.0 Tachycardia, unspecified